=== PATIENT | female | born 2000 | race Caucasian/White ===

== ENCOUNTER 2021-12-06 10:53 | Outpatient (CLI) | payer OTHER | END 2021-12-06 10:54 | disposition home or self-care (01) | LOC: CSHLAB 10:53 | PROVIDERS: ATTEND Obstetrics & Gynecology | DX: Z20.822 Contact with and (suspected) exposure to COVID-19 (principal) | CPT/HCPCS: 87811 ==

== ENCOUNTER 2021-12-07 08:00 | Inpatient (IN) | payer OTHER ==
[~2021-12-07 08:00] MED LIST: Bupivacaine 0.25% HCL 30 ML VIAL ONE
[2021-12-07] MEDS ORDERED: Promethazine HCl 25 MG/ML VIAL IM PRN ×2 (09:04→11:16)
[2021-12-07] MEDS ORDERED: Lidocaine 1% (PF) 30 ML VIAL SC PRN (09:04)
[2021-12-07] MEDS ORDERED: hydrALAZINE 20 MG/ML VIAL SLOW IVP PRN ×2 (09:04→14:02)
[2021-12-07] MEDS ORDERED: Ondansetron PF 4 MG/2 ML Vial IVP PRN ×3 (09:04→14:02)
[2021-12-07] MEDS ORDERED: NS w/ Oxytocin 30 units 500 ML IV SCH ×2 (09:15→14:15)
[2021-12-07] MEDS ORDERED: Lactated Ringer's 1,000 ML IV SCH (09:15)
[2021-12-07 10:05] VITALS: BMI 39.4
[2021-12-07 10:17] LABS: Hemoglobin 10.8 g/dL (12.0-15.5); Mean Corpuscular HGB CONC 31.1 g/dL (32.0-36.0); Mean Corpuscular Volume 70.5 fl (81.6-98.3); Mean Platelet Volume 9.7 fl (7.4-10.4); Platelet Count 273 10x3/uL (150-450); RBC Distribution Width 17.4 % (11.5-14.5); Red Blood Cell (RBC) Count 4.92 10x6/uL (3.90-5.03); White Blood Cell (WBC) Count 15.3 10x3/uL (3.5-10.5)
[2021-12-07] MEDS ORDERED: Fentanyl 2 mcg/Bup 0.1% Cadd 100 ML ONE (10:17)
[2021-12-07 10:45] LABS: Hep B Surf Ag Non-Reactive S/CO (NonReactive); Syphilis Antibody Nonreactive (Nonreactive); Syphilis Antibody Index 0.03 S/CO (<1.00 Non-Reactive)
[2021-12-07] MEDS ORDERED: diphenhydrAMINE 50 MG/ML VIAL IVP PRN (11:16)
[2021-12-07] MEDS ORDERED: Naloxone HCl 0.4 mg/ml Vial IVP PRN ×2 (11:16)
[2021-12-07] MEDS ORDERED: Moisturizing Cream (Eucerin) 113 GM JAR TOP PRN (11:16)
[2021-12-07] MEDS ORDERED: Acetaminophen 325 MG TAB PO PRN (11:16)
[2021-12-07] MEDS ORDERED: ePHEDrine Sulfate 50 MG/10 ML VIAL SLOW IVP PRN (11:16)
[2021-12-07] MEDS ORDERED: Lactated Ringer's 500 ML IV PRN (11:16)
[2021-12-07] MEDS ORDERED: Communication Order-Pharmacy FS SCH (11:30)
[2021-12-07] MEDS ORDERED: Fentanyl 2 mcg/Bupivacaine 0.1% Cassette 100 ML EPIDURAL SCH (11:30)
[2021-12-07] MEDS ORDERED: Zolpidem Tartrate 5 MG TAB PO PRN (14:02)
[2021-12-07] MEDS ORDERED: Boostrix 0.5 ML (Tdap) VIAL IM ONE (14:02)
[2021-12-07] MEDS ORDERED: Preparation H Ointment 28 GM TUBE PR PRN (14:02)
[2021-12-07] MEDS ORDERED: HYDROcodone/Acetaminophen 5/325 mg Tablet PO PRN ×2 (14:02)
[2021-12-07] MEDS ORDERED: Misoprostol 200 MCG TAB VAG PRN (14:02)
[2021-12-07] MEDS ORDERED: diphenhydrAMINE 25 MG CAP PO PRN (14:02)
[2021-12-07] MEDS ORDERED: Milk Of Magnesia 30 ML UDCUP PO PRN (14:02)
[2021-12-07] MEDS ORDERED: Benzocaine-Menthol 82.5 ML CAN TOP PRN (14:02)
[2021-12-07] MEDS ORDERED: Bisacodyl 10 MG SUPP PR PRN (14:02)
[2021-12-07] MEDS ORDERED: Lanolin Ointment 7 GM TUBE TOP PRN (14:02)
[2021-12-07] MEDS: Ferrous Sulfate 325 MG TAB PO SCH (17:10)
[2021-12-07] MEDS: Ibuprofen 800 MG TAB PO SCH (21:57)
[2021-12-07] MEDS: Docusate 100 MG CAP PO SCH (21:58)
[2021-12-08 05:02] LABS: Mean Corpuscular HGB CONC 30.8 g/dL (32.0-36.0); Mean Corpuscular Hemoglobin 22.2 pg (27.0-33.0); Mean Corpuscular Volume 71.9 fl (81.6-98.3); Mean Platelet Volume 9.6 fl (7.4-10.4); Platelet Count 227 10x3/uL (150-450); RBC Distribution Width 17.3 % (11.5-14.5); Red Blood Cell (RBC) Count 4.06 10x6/uL (3.90-5.03); White Blood Cell (WBC) Count 13.6 10x3/uL (3.5-10.5)
[2021-12-08] MEDS: Ibuprofen 800 MG TAB PO SCH ×2 (05:52→14:04)
[2021-12-08] MEDS: Docusate 100 MG CAP PO SCH (08:35)
[2021-12-08] MEDS: Ferrous Sulfate 325 MG TAB PO SCH (08:35)
[2021-12-08 08:44] VITALS: TEMP 97.8
[2021-12-08] MEDS ORDERED: Prenatal Vitamin 1 TAB PO SCH (09:00)
[2021-12-08 12:46] VITALS: BP 119/68
== END 2021-12-08 16:25 | disposition home or self-care (01) | DRG 807 ==
LOC: CSHLD/OP 08:00 → CSHLD 10:31 → CSHPP 16:40
PROVIDERS: ADMIT Obstetrics & Gynecology; ATTEND Obstetrics & Gynecology
PROC: 10E0XZZ Delivery of Products of Conception, External Approach (ICD-10-PCS; principal; 2021-12-07)
PROC: 10907ZC Drainage of Amniotic Fluid, Therapeutic from Products of Conception, Via Natural or Artificial Opening (ICD-10-PCS; 2021-12-07)
DX: O13.4 Gestational [pregnancy-induced] hypertension without significant proteinuria, complicating childbirth (principal); Z37.0 Single live birth; O99.02 Anemia complicating childbirth; D64.9 Anemia, unspecified; Z3A.38 38 weeks gestation of pregnancy; Z79.899 Other long term (current) drug therapy; Z79.82 Long term (current) use of aspirin
CPT/HCPCS: 36415; 51702; 85027; 86780; 86850; 86900; 86901; 87340; 87811; 99285; J2405; J2590; J7120; S0020

== ENCOUNTER 2022-08-13 13:42 | Outpatient (CLI) | payer OTHER | END 2022-08-13 13:43 | disposition home or self-care (01) | LOC: CSHRAD 13:42 | PROVIDERS: ATTEND Nurse Practitioner Family | DX: T83.32XA Displacement of intrauterine contraceptive device, initial encounter (principal) | CPT/HCPCS: 74018 ==